=== PATIENT | male | born 1935 | race Caucasian/White ===

== ENCOUNTER 2020-08-07 16:19 | Emergency (ER) | payer BC ==
[2020-08-07 16:26] VITALS: BP 154/70; PULSE 69; TEMP 97.8; BMI 23.3
[2020-08-07] MEDS ORDERED: DOXYCYCLINE HYCLATE 100 MG CAPSULE PO ONE ×2 (17:19→17:20)
== END 2020-08-07 17:30 | disposition home or self-care (01) ==
LOC: FER 16:19
DX: S30.860A Insect bite (nonvenomous) of lower back and pelvis, initial encounter (principal)
CPT/HCPCS: 99284-25